=== PATIENT | female | born 1970 | race Caucasian/White ===

== ENCOUNTER 2022-01-23 08:00 | Outpatient (CLI) | payer BC ==
--- NOTE | 2022-01-23 15:27 | XRAY Report ---
PROCEDURE: Foot 3 View LT INDICATIONS: PAIN IN LEFT TOE TECHNIQUE: 3 views of the foot were acquired. COMPARISON: None FINDINGS: Bones: Oblique fracture of the proximal phalanx of the fourth toe. No suspicious bony lesions. Soft tissues: No tibiotalar joint effusion. Achilles tendon appears normal. IMPRESSION: Oblique fracture of the proximal phalanx of the fourth toe. Reviewed by: Carlos Elmore on 01/23/2022 2:26 PM PERLITA Approved by: Carlos Elmore on 01/23/2022 2:26 PM PRELITA Station ID: [id number]
== END 2022-01-23 23:59 | disposition home or self-care (01) ==
LOC: DI.S 08:00
PROVIDERS: ATTEND Physician Assistant
DX: S92.512A Displaced fracture of proximal phalanx of left lesser toe(s), initial encounter for closed fracture (principal)